=== PATIENT | female | born 1950 | race Caucasian/White ===

== ENCOUNTER 2024-08-24 08:36 | Emergency (ER) | payer OTHER ==
[~2024-08-24] VITALS: Ht 152.4 cm; Wt 68.0 kg
[2024-08-24 08:54] VITALS: O2SAT 99
[2024-08-24 09:03] VITALS: BP 148/90; PULSE 68; RESP 16; TEMP 98.2; O2SAT 99
[2024-08-24] MEDS ORDERED: METH-653 MT (10:01)
[2024-08-24] MEDS ORDERED: LIDO700A30 TP (10:01)
[2024-08-24] MEDS: METHOCARBAMOL 500MG TABLET PO ONE (10:06)
== END 2024-08-24 10:49 | disposition home or self-care (01) ==
LOC: ER 08:36
DX: S33.5XXA Sprain of ligaments of lumbar spine, initial encounter (principal); M54.40 Lumbago with sciatica, unspecified side; I10 Essential (primary) hypertension; Z98.890 Other specified postprocedural states; Z88.6 Allergy status to analgesic agent; X58.XXXA Exposure to other specified factors, initial encounter; Y93.89 Activity, other specified; Y92.89 Other specified places as the place of occurrence of the external cause; Y99.8 Other external cause status
CPT/HCPCS: 72100; 99283